=== PATIENT | female | born 1985 | race Caucasian/White ===

== ENCOUNTER 2017-08-26 09:37 | Observation (INO) | payer MEDICAID ==
[~2017-08-26] VITALS: Ht 160 cm; Wt 94.9 kg
[2017-08-26 09:40] VITALS: BP 212/142
--- NOTE | 2017-08-26 09:47 | NUR ---
PATIENT AMBULATED TO BED 8 AT THIS TIME.
--- NOTE | 2017-08-26 10:00 | NUR ---
32 F C/O "BRIGHT RED" MODERATE VAGINAL BLEEDING X TODAY; PT DENIES PAIN; PT STATES CHANGING PAD EVERY 3-4 HOURS; PT RECENTLY HAD A POSITIVE HOME TEST AND STATES SHE WAS SCARED BECAUSE OF "SIDE EFFECTS" OF MEDICATION, SO SHE STOPPED TAKING HER BLOOD PRESSURE MEDICATION;DENIES N/V/D; SKIN IS PINK/WARM/DRY; AAOX4 WITH EVEN AND STEADY GAIT; RR ARE EVEN AND UNLABORED; JO=[id number]/134; ER MD DUMONT AWARE; PATIENT POSITIONED FOR COMFORT; HOB ELEVATED;BED DOWN. ER MADE AWARE OF PT STATUS. [facility]
[2017-08-26] MEDS ORDERED: NACL 0.9% 1,000 ML IV ONE (10:10)
[2017-08-26] MEDS ORDERED: LABETALOL 100 MG/20 ML VIAL IVP ONE (10:10)
[2017-08-26 10:13] LABS: BASOPHILS # (AUTO) 0.2 K/uL (0.00-0.22); BASOPHILS % (AUTO) 1.7 % (0.0-2.0); EOSINOPHILS # (AUTO) 0.1 K/uL (0-0.4); EOSINOPHILS % (AUTO) 0.7 % (0.0-4.0); HEMATOCRIT 44.5 % (36-48); HEMOGLOBIN 14.6 g/dL (12.0-16.0); LYMPHOCYTES # (AUTO) 2.2 K/uL (2.5-16.5); LYMPHOCYTES % (AUTO) 18.3 % (20.5-51.1); MEAN CORPUSCULAR HEMOGLOBIN 28 pg (27-31); MEAN CORPUSCULAR HGB CONC 33 g/dL (33-37); MEAN CORPUSCULAR VOLUME 86 fL (80-94); MONOCYTES # (AUTO) 0.9 K/uL (0.8-1.0); MONOCYTES % (AUTO) 7.4 % (1.7-9.3); NEUTROPHILS # (AUTO) 8.4 K/uL (1.8-7.7); NEUTROPHILS % (AUTO) 71.9 % (42.2-75.2); PLATELET COUNT (AUTO) 193 K/uL (140-450); RED BLOOD CELL COUNT(AUTO) 5.18 MIL/uL (4.20-5.40); RED CELL DISTRIBUTION WIDTH 14.5 % (11.6-13.7); WHITE BLOOD COUNT (AUTO) 11.8 K/uL (4.8-10.8)
[2017-08-26 10:20] LABS: APPEARANCE,URINE CLOUDY (CLEAR); BILIRUBIN,URINE 1+ (NEGATIVE); BLOOD, URINE 3+ (NEGATIVE); LEUKOCYTE ESTERASE ,URINE TRACE (NEGATIVE); NITRITE, URINE NEGATIVE (NEGATIVE); PH,URINE 6.5 (5.0-9.0); UGLUCOSE NEGATIVE (NEGATIVE)
--- NOTE | 2017-08-26 10:30 | NUR ---
US BY BEDSIDE
[2017-08-26 10:32] LABS: COLOR,URINE RED (YELLOW)
[2017-08-26 10:35] LABS: RBC,URINE 50-80 /HPF (0-5)
--- NOTE | 2017-08-26 10:46 | NUR ---
SPOKE WITH L&D NURSE; PT 26 WEEKS WITH VAGINAL BLEEDING; WILL TRANSFER PT TO ROOM 12 IN L&D PER RN.
--- NOTE | 2017-08-26 10:55 | NUR ---
PT TRANSFERRED TO L&D #212; ER MD DUMONT AWARE; GAVE BEDSIDE REPORT TO SHIVA Power RN, rN AWARE OF BP; PT STABLE FOR TRANSFER; PT DENIES ANY CP, SOB, CHANGES IN VISION, AND IS AOX4 AND RR ARE EVEN AND UNLABORED
[2017-08-26 11:13] LABS: ANION GAP 10.9 (8-16); CARBON DIOXIDE 24.3 mmol/L (21-32); CREATININE 0.6 mg/dL (0.6-1.3); POTASSIUM 3.2 mmol/L (3.5-5.1)
[2017-08-26 11:16] LABS: PROTHROMBIN TIME 9.2 secs (10.8-13.4)
[2017-08-26 11:19] LABS: ALBUMIN 2.7 g/dL (3.4-5.0); TOTAL BILIRUBIN 0.5 mg/dL (0.0-1.0)
[2017-08-26 11:30] VITALS: BP 173/122
[2017-08-26] MEDS ORDERED: LACTATED RINGERS 1,000 ML IV SCH (11:45)
[2017-08-26] MEDS ORDERED: hydrALAZINE 20 MG/ML VIAL ONE ×2 (11:51→14:57)
[2017-08-26] MEDS ORDERED: hydrALAZINE 10 MG TAB JT SCH (11:53)
[2017-08-26 12:14] LABS: BARBITURATE, URINE NEG. ng/ml (NEG <=200); BENZODIAZEPINE, URINE NEG. ng/mL (NEG <=200); CANNABINOID, URINE NEG. ng/mL (NEG <=50); COCAINE, URINE NEG. ng/mL (NEG <=300); OPIATE, URINE NEG. ng/mL (NEG <=2000); PHENCYCLIDINE SCREEN,URINE NEG. ng/mL (NEG <=25)
[2017-08-26] MEDS ORDERED: hydrALAZINE 20 MG/ML VIAL IVP SCH (13:58)
[2017-08-26] MEDS ORDERED: MAG SULF 2000 MG/WATER PREMIX 100 ML IV SCH (14:00)
[2017-08-26 15:01] VITALS: BP 168/106
[2017-08-26] MEDS ORDERED: MAG SULF 20 GM/H2O PREMIX DRIP 500 ML IV SCH (15:10)
[2017-08-26] MEDS ORDERED: MAG SULF 20 GM/H2O PREMIX DRIP 500 ML IV ONE (15:52)
== END 2017-08-26 18:05 | disposition short-term general hospital (02) ==
LOC: MED 09:37 → EDSTATUS 11:11 → MFCC 11:15
PROVIDERS: ADMIT Obstetrics & Gynecology; ATTEND Obstetrics & Gynecology
DX: O26.892 Other specified pregnancy related conditions, second trimester (principal); R03.0 Elevated blood-pressure reading, without diagnosis of hypertension; O12.12 Gestational proteinuria, second trimester; Z3A.26 26 weeks gestation of pregnancy
CPT/HCPCS: 36415; 76805; 80053; 80305; 81001; 84702; 85025; 85379; 85610; 85730; 86900; 86901; 87086; 96361; 96365; 96366; 96375; 99285; G0378; J0360; J3475; J3490; J7030; J7120; Q0092

== ENCOUNTER 2021-12-13 15:55 | Emergency (ER) | payer MEDICAID ==
--- NOTE | 2021-12-13 16:20 | NUR ---
CALLED TO TRIAGE NO ANSWER IN LOBBY OR OUTSIDE
--- NOTE | 2021-12-13 17:00 | NUR ---
PATIENT LEFT WITHOUT BEING SEEN BY DR. SMITH. NO FURTHER CARE PROVIDED FOR PATIENT.
--- NOTE | 2021-12-13 17:00 | NUR ---
CALLED NUMBER ON FILE, NO ANSWER.
== END 2021-12-13 17:00 | disposition left against medical advice (07) ==
LOC: MED 15:55
DX: R20.0 Anesthesia of skin (principal); Z53.21 Procedure and treatment not carried out due to patient leaving prior to being seen by health care provider